=== PATIENT | female | born 1990 | race Two or more races ===

== ENCOUNTER 2024-04-24 21:54 | Emergency (ER) | payer OTHER ==
[~2024-04-24] VITALS: Ht 157.5 cm; Wt 104.0 kg
[2024-04-24] MEDS ORDERED: LORAZEPAM 2MG/ML INJ IM ONE (23:15)
[2024-04-24] MEDS ORDERED: DIPHENHYDRAMINE 50MG/ML VIAL IM PRN (23:15)
[2024-04-25 01:11] LABS: CHLORIDE 103 mEq/L (98-107); SODIUM 136 mEq/L (136-145)
[2024-04-25 01:12] LABS: CALCIUM 8.8 mg/dL (8.7-10.4); CARBON DIOXIDE 28 mEq/L (21-32)
[2024-04-25 01:17] LABS: CREATININE 0.8 mg/dL (0.6-1.0); GLUCOSE 93 mg/dL (70-105); UREA NITROGEN BLOOD 7 mg/dL (9-23)
[2024-04-25] MEDS: FLUORESCEIN SODIUM 1MG/STRIP BOTHEYE ONE (01:18)
[2024-04-25] MEDS: HALOPERIDOL LACTATE 5MG/ML VIAL IM ONE (01:18)
[2024-04-25 01:19] LABS: ACETAMINOPHEN < 2 ug/mL (10-30)
[2024-04-25] MEDS: TETRACAINE 0.5% OPHTH DROPS 4ML BOTHEYE ONE (01:19)
[2024-04-25 01:20] LABS: ETHANOL BLOOD < 10 mg/dL (<10)
[2024-04-25] MEDS: LORAZEPAM 2MG/ML INJ IM NR (01:20)
[2024-04-25] MEDS: FLUORESCEIN SODIUM 1MG/STRIP BOTHEYE NR (01:20)
[2024-04-25] MEDS: TETRACAINE 0.5% OPHTH DROPS 4ML BOTHEYE NR (01:20)
[2024-04-25] MEDS: DIPHENHYDRAMINE 50MG/ML VIAL IM PRN (01:21)
[2024-04-25] MEDS: HALOPERIDOL LACTATE 5MG/ML VIAL IM NR (01:21)
[2024-04-25 01:22] LABS: BASOPHILS % 0.6 % (0.0-2.0); DIFFERENTIAL COMMENT 0; EOSINOPHILS % 0.8 % (0.0-5.0); HEMATOCRIT. 37.9 % (36.0-48.0); HEMOGLOBIN. 11.9 g/dL (12.0-16.0); LYMPHOCYTES % 22.7 % (20.0-50.0); MEAN CORPUSCULAR HEMOGLOBIN 24.1 pg (28.0-32.0); MEAN CORPUSCULAR HGB CONC 31.5 g/dL (31.0-37.0); MEAN CORPUSCULAR VOLUME 76.6 fL (81.0-99.0); MEAN PLATELET VOLUME 7.9 fl (7.4-10.4); MONOCYTES % 5.7 % (2.0-8.0); NEUTROPHILS % 70.2 % (40.0-76.0); PLATELET 333 x1000/uL (130-400); RED BLOOD CELL COUNT 4.95 mill/uL (4.2-5.4); RED CELL DISTRIBUTION WIDTH 15.6 % (11.6-14.6); WHITE BLOOD COUNT 9.3 x1000/uL (4.5-11.0)
[2024-04-25 01:33] LABS: CLARITY URINE CLOUDY (CLEAR); COLOR URINE ORANGE (YELLOW); GLUCOSE URINE NEGATIVE (NEGATIVE); KETONES URINE TRACE (NEGATIVE); LEUKOCYTE ESTERASE URINE 1+ (NEGATIVE); NITRITE URINE POSITIVE (NEGATIVE); OCCULT BLOOD URINE 3+ (NEGATIVE); PH URINE 6.5 (4.5-8.0); PROTEIN URINE TRACE (NEGATIVE); SPECIFIC GRAVITY URINE 1.019 (1.005-1.030)
[2024-04-25 01:44] LABS: *AMPHETAMINES SCREEN URINE PRESUMPTIVE POSITIVE (NEGATIVE)
[2024-04-25 01:46] LABS: *BARBITURATES SCREEN URINE NEGATIVE (NEGATIVE); *BENZODIAZEPINES SCREEN URINE PRESUMPTIVE POSITIVE (NEGATIVE); *COCAINE SCREEN URINE NEGATIVE (NEGATIVE); CANNABINOID URINE SCREEN NEGATIVE (NEGATIVE); ECSTASY MDMA SCREEN URINE CONF.TEST INDICATED (NEGATIVE); METHADONE URINE SCREEN NEGATIVE (NEGATIVE); OPIATES URINE SCREEN NEGATIVE (NEGATIVE); PHENCYCLIDINE URINE SCREEN PRESUMTIVE POSITIVE (NEGATIVE)
[2024-04-25 02:00] LABS: HCG SCREEN NEGATIVE
[2024-04-25 02:15] VITALS: O2SAT 98
[2024-04-25] MEDS ORDERED: NITROFURANTOIN 100MG M/M CAPSULE PO SCH (02:30)
[2024-04-25 04:48] LABS: SQUAMOUS EPITHELIAL CELL URINE FEW /lpf (RARE/1+)
[2024-04-25 04:50] LABS: BACTERIA URINE 4+; RBC URINE TNTC /hpf (0-2)
[2024-04-25] MEDS: NITROFURANTOIN 100MG M/M CAPSULE PO SCH (09:39)
[2024-04-25] MEDS: CIPROFLOXACIN 0.3% OPHTH SOLN 2.5ML BOTHEYE SCH (09:39)
[2024-04-25 11:37] VITALS: BP 172/92; PULSE 96; RESP 18; TEMP 36.50292; O2SAT 99
[2024-04-25] MEDS ORDERED: TRIMO EACHEYE (12:32)
== END 2024-04-25 12:56 | disposition home or self-care (01) ==
LOC: ER 21:58
DX: H57.13 Ocular pain, bilateral (principal); R45.851 Suicidal ideations; Z20.822 Contact with and (suspected) exposure to COVID-19
CPT/HCPCS: 99291; 80305; 80048; 81003; 80307; 80329; 80320; 84703; 85025; 36415; 87426; J1200; J1630; J2060; G0480